=== PATIENT | male | born 1990 | race Caucasian/White ===

== ENCOUNTER 2023-08-16 19:51 | Emergency (ER) | payer SELFPAY ==
[2023-08-16 19:57] VITALS: BP 115/66; PULSE 82; RESP 18; TEMP 98.3
[2023-08-16] MEDS ORDERED: IBUPROFEN 600 MG TABLET (FP) PO ONE ×2 (20:54→20:57)
== END 2023-08-16 22:31 | disposition home or self-care (01) ==
LOC: JERFT 19:51
DX: S86.002A Unspecified injury of left Achilles tendon, initial encounter (principal); M25.572 Pain in left ankle and joints of left foot; M25.472 Effusion, left ankle; W21.05XA Struck by basketball, initial encounter; Y93.67 Activity, basketball; Y92.310 Basketball court as the place of occurrence of the external cause
CPT/HCPCS: 73610-TC-LT-FY; 99283-25